=== PATIENT | female | born 1980 | race Caucasian/White ===

== ENCOUNTER → 2017-11-12 14:01 | Outpatient (CLI) | payer OTHER, SELFPAY | PROVIDERS: Family Provider Student in an Organized Health Care Education/Training Program; PCP Student in an Organized Health Care Education/Training Program; Visit Provider Nurse Practitioner Adult Health | DX: R00.2 Palpitations (principal) | CPT/HCPCS: 93225; 93226 ==

== ENCOUNTER 2018-04-07 00:10 | Emergency (ER) | payer OTHER, SELFPAY ==
[2018-04-07 00:11] VITALS: BP 151/99; PULSE 80; RESP 18; TEMP 37.4; O2SAT 98; BMI 32.8
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
--- NOTE | 2018-04-07 02:15 | ED.DEP ---
ED Disposition - Plan for ED Patient: Disposition: Home or Assisted Living Chief Complaint: General Illness Instructions: ED Fx Rib Prescriptions: Ondansetron [Zofran Odt] 4 mg PO Q8H PRN PRN #10 tab PRN Reason: Nausea Referrals: Jet Ashraf DO [Primary Care Provider] -
[2018-04-07 02:25] VITALS: PULSE 84; RESP 18; O2SAT 99
== END 2018-04-07 02:25 | disposition home or self-care (01) ==
PROVIDERS: Emergency Provider Emergency Medicine; Family Provider Student in an Organized Health Care Education/Training Program; PCP Student in an Organized Health Care Education/Training Program
DX: R06.9 Unspecified abnormalities of breathing (principal)
CPT/HCPCS: 71046; 99282

== ENCOUNTER 2019-01-24 08:22 | Emergency (ER) | payer OTHER, SELFPAY ==
[2019-01-24 08:24] VITALS: BP 140/96; PULSE 64; RESP 14; TEMP 37; O2SAT 100; BMI 29.9
--- NOTE | 2019-01-24 08:34 | EKG12_ITS ---
Test Reason : LEFT ARM PAIN Blood Pressure : / mmHG Vent. Rate : 064 BPM Atrial Rate : 064 BPM P-R Int : 152 ms QRS Dur : 074 ms QT Int : 410 ms P-R-T Axes : 047 021 035 degrees QTc Int : 422 ms Normal sinus rhythm Low voltage QRS Borderline ECG Confirmed by CARMELITA MINER, SHELLEY ([id number]), story editor MODESTA ARROYO ([id number]) on 01/26/2019 11:08:58 AM Referred By: JORDY Confirmed By:SHELLEY MAE MD
[2019-01-24 08:35] VITALS: BP 130/91; PULSE 66; RESP 14; O2SAT 99
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
[2019-01-24] MEDS: 0.9% Normal Saline 1,000 ML 150 ML IV (08:48)
[2019-01-24] MEDS: Ketorolac 30 MG/ML Syringe IV (08:48)
[2019-01-24 09:06] LABS: Absolute Neutrophil Count 3.3 X10^3/uL (2.0-7.7); Basophil# 0.03 X10^3/uL; Basophil% 0.5 % (0-1); Eosinophil# 0.16 X10^3/uL; Eosinophils% 2.7 % (0-5); Hematocrit 41.4 % (37-47); Hemoglobin 14.3 g/dl (12.0-15.0); Lymphocyte % 34.8 % (19-41); Mean Corp Hgb Conc 34.5 g/gl (32-36); Mean Corpuscular Hgb 30.2 pg (27.0-32.0); Mean Corpuscular Volume 87.3 fL (81-99); Mean Platelet Vol. 10.4 fl (6.2-12.0); Monocyte% 6.6 % (0-10); Neutrophil # 3.33 X10^3/uL (2.7-7.7); Neutrophil % 55.2 % (47-70); POSITIVE COUNT NO; POSITIVE DIFFERENTIAL NO; POSITIVE MORPHOLOGY NO; Platelet Count 235 K/mm3 (150-450); RBC Distribution Width CV 12.6 % (11.6-14.6); RBC Distribution Width SD 40.8 fl (35.1-43.9); Red Blood Count 4.74 M/mm3 (4.2-5.4)
--- NOTE | 2019-01-24 09:10 | RAD_ITS ---
STUDY: X-RAY CHEST REASON FOR EXAM: Female, 38 years old. Chest pain TECHNIQUE: PA and lateral views of the chest. COMPARISON: 04/07/2018 FINDINGS: The lungs are clear and expanded. There is no demonstrated pleural abnormality. Normal size heart. Normal mediastinum and ysabel. Normal visualized pulmonary arteries. Normal visualized aortic arch and descending thoracic aorta. Normal visualized thoracic spine. Normal visualized ribs, clavicles, and shoulders. There is no demonstrated abnormality of the visualized soft tissue structures of the upper abdomen. RAD/Chest PA and Lateral IMPRESSION: Normal x-ray examination of the chest. Electronically Signed: Calvin Lassiter DO at 9:27 EDT Tel , Service support ,
--- NOTE | 2019-01-24 09:19 | RAD_ITS ---
STUDY: X-RAY - LEFT SHOULDER REASON FOR EXAM: Female, 38 years old. Shoulder pain TECHNIQUE: 4 view(s) of the shoulder. COMPARISON: None. FINDINGS: Normal glenohumeral articulation. Normal acromioclavicular joint. Normal acromion. Normal humeral head and visualized proximal humerus. The soft tissue structures are unremarkable. Normal visualized pulmonary apex. RAD/Shoulder min 2 Views IMPRESSION: Normal x-ray examination of the shoulder. Electronically Signed: Calvin Lassiter DO at 9:27 EDT Tel , Service support ,
[2019-01-24 09:21] LABS: Anion Gap 5 (5-15); BUN 10 mg/dL (7-18); BUN/Creat Ratio 9.6 RATIO (10-20); Chloride 105 mmol/L (98-107); Creatinine, Serum 1.04 mg/dL (0.55-1.02); EST Glomerular Filtration Rate 62 mL/min (>60); Est Glom Filt Rate - Afr Amer 75 mL/min (>60); Glucose 86 mg/dL (74-106); Potassium 3.9 mmol/L (3.5-5.1); Sodium Level 138 mmol/L (136-145)
[2019-01-24 09:38] VITALS: BP 126/96; PULSE 64; RESP 16; O2SAT 99
== END 2019-01-24 09:44 | disposition home or self-care (01) ==
PROVIDERS: Emergency Provider Emergency Medicine; Family Provider Student in an Organized Health Care Education/Training Program; PCP Student in an Organized Health Care Education/Training Program
DX: M25.512 Pain in left shoulder (principal)
CPT/HCPCS: 71046; 73030; 80048; 84484; 85025; 93005; 96361; 96374; 99285; J7030

== ENCOUNTER → 2019-09-13 08:32 | Outpatient (CLI) | payer OTHER, SELFPAY ==
--- NOTE | 2019-09-13 08:33 | BI_ITS ---
MAMMOGRAPHY - BILATERAL SCREENING REASON FOR EXAM: Female, 39 years old. Routine annual screening examination. PERTINENT HISTORY: Aunts with breast cancer. TECHNIQUE: Digital bilateral breast nelli (3D mammographic acquisition) in the CC and MLO projections. 2-D mediolateral oblique (MLO) and craniocaudad (CC) views of both breasts were obtained. CAD: Full Field Digital Mammography with Computer Added Detection was performed. COMPARISON: Comparison is made with prior study dated January 06, 2017 and September 30, 2014. FINDINGS: Breast Composition: The breasts are heterogeneously dense, which may obscure small masses. There are no dominant masses or suspicious calcifications. No other significant abnormalities are identified. There has been no significant change since the prior study. BI/SCREEN MAMM (CAD) W/NELLI BILAT IMPRESSION: Stable bilateral screening mammogram. Yearly follow-up mammogram recommended. (A) ASSESSMENT CATEGORY: BIRADS Category 1: Negative. A letter regarding these results will be sent to the patient by the facility within 30 days. Approximately 10% of breast cancers are not detected by mammography. A normal mammogram should not delay biopsy of a clinically suspicious abnormality. [id number] Electronically Signed: Primo Esquivel, at 9:59 EST , Service support ,
== END ==
PROVIDERS: Family Provider Student in an Organized Health Care Education/Training Program; PCP Student in an Organized Health Care Education/Training Program; Referring Provider Obstetrics & Gynecology; Visit Provider Obstetrics & Gynecology
DX: Z12.31 Encounter for screening mammogram for malignant neoplasm of breast (principal)
CPT/HCPCS: 77063; 77067

== ENCOUNTER → 2020-04-10 13:22 | Outpatient (CLI) | payer OTHER, SELFPAY ==
--- NOTE | 2020-04-10 13:24 | CT_ITS ---
STUDY: CT BRAIN AND SINUSES WITHOUT CONTRAST REASON FOR EXAM: Female, 39 years old. SINUSITIS RADIATION DOSAGE (If Supplied By Facility): CTDIvol = ( 33.06 ) mGy, DLP = ( 829.72 ) mGycm TECHNIQUE: Transaxial CT imaging of the brain was performed without administration of contrast. Individualized dose optimization techniques were used for this CT. COMPARISON: No relevant priors. FINDINGS: CT BRAIN Normal soft tissue structures. Normal calvarium. Normal size ventricles and extra-axial spaces for the patient''s age. Normal white matter tracts of the cerebral hemispheres. Normal basal ganglia and thalami. Normal brainstem. Normal cerebellum. There is no intracranial hemorrhage. There are no findings of an acute ischemic infarction. CT SINUSES Post Surgical Changes: None. Frontal Sinus and Recess: Normal aeration without mucosal inflammatory disease. Ethmoidal Sinuses: Normal aeration without mucosal inflammatory disease. Maxillary Sinuses: Normal aeration without mucosal inflammatory disease. Ostiomeatal Complex: Clear. Sphenoid Sinus: Normal aeration without mucosal inflammatory disease. Sphenoethmoidal Recess: Clear. Nasal Turbinate (Right): Middle Turbinate (Right): Normal. Middle Turbinate (Left): Normal. Inferior Turbinate (Right): Normal. Inferior Turbinate (Left): Normal. Nasal Septum: Left sided nasal septal deviation with a nasal septal spur. Nasal Airway: Clear. Cribiform Plate / Anterior Cranial Fossa: Normal. Orbits: Normal. CT/Sinus/Facial Bone IMPRESSION: Nasal septal deviation toward the left side. Electronically Signed: Primo Esquivel, at 14:40 EDT , Service support ,
== END ==
PROVIDERS: PCP Student in an Organized Health Care Education/Training Program; Referring Provider Otolaryngology; Visit Provider Otolaryngology
DX: J32.9 Chronic sinusitis, unspecified (principal)
CPT/HCPCS: 70486

== ENCOUNTER 2020-05-04 11:56 | Outpatient (RCR) | payer OTHER, SELFPAY ==
--- NOTE | 2020-05-04 12:15 | SOAP_ITS ---
REASON FOR REFERRAL: The Patient is a 39 year old female referred for a clinical speech-language evaluation at [facility] on 05/04/2020 due to persistent difficulties with inhalation / shortness of breath likely secondary to paradoxical vocal fold dysfunction following extensive workup by the Patients licensed social worker and hydroelectric machinery mechanic helper. The Patient reports symptom onset in November / December of this year, with her initial symptoms (restricted breathing) attributed to strep pharyngitis (her son had recently had strep throat), and was treated with antibiotics; this was unsuccessful and she was then treated for a possible inner ear infection; this was additionally unsuccessful. She then underwent workup for asthma, allergies (which she reports was unsuccessful), and gastroesophageal reflux; she does report some benefit from use of proton pump inhibitors (vocal hoarseness has improved slightly). She additionally reports that she has an enlarged thyroid nodules, though this has improved with steroids (she reports about a 50% improvement). She reports that her symptoms include difficulties with inhalation vs. exhalation, chest heaviness / tightness, and globus sensation, with the patient describing her breathing as ?fluttered? and that its like having a ?hole in a straw?. She reports that her symptom onset is at random, with episodes lasting a few minutes, though reoccurring throughout the day, with these bouts lasting a few hours upwards to a few days. She has not noticed any precipitating signs, though has noticed a sensitivity to smell. She reported that she experienced some initial hoarse vocal quality and sore throat, though this appears to have improved. She reports that she is a ?type A? individual, though not overly anxious or stressed at baseline. 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 MEDICAL HISTORY: Pneumothorax (2018), status post appendectomy, fallopian cyst status post removal (1998), shoulder surgery (2019). MEDICATIONS: Zyrtec, Nasacort, omeprazole. RESULTS OF THE EVALUATION: The Patient presents with reported signs and symptoms similar to paradoxical vocal cord dysfunction (J38.3). FUNCTIONAL STATUS ASSESSMENT RESULTS: PATIENT HEALTH QUESTIONNAIRE (PHQ-9) PHQ OVERALL SCORE: 1 PHQ INTERPRETATION: minimal depression risk GENERALIZED ANXIETY DISORDER 7-ITEM (TY-7) SCALE TY-7 OVERALL SCORE: 4 TY-7 INTERPRETATION: no indicators of an anxiety disorder FUNCTIONAL AMBULATION CATEGORY (FAC): FAC SCORE: 5 (ambulator- independent) FAC DESCRIPTION: subject can ambulate independently on nonlevel and level surfaces, stairs, and inclines. CLINICAL ASSESSMENT OF VOCAL CORD FUNCTIONING (QUANTITATIVE): REFLUX SYMPTOM INDEX (RSI) RSI TOTAL SCORE: 12 RSI INDICATIONS: a score of >13 may indicate significant reflux VOCAL CORD DYSFUNCTION? QUESTIONNAIRE (VCD-Q): VCD-Q TOTAL SCORE: 37/60 DESCRIPTION OF RESULTS: a score > 12 indicates a possible vocal cord dysfunction CLINICAL ASSESSMENT OF VOCAL CORD FUNCTION (QUALITATIVE): TYPE OF STRIDOR / BREATHING DIFFICULTY INSPIRATORY: yes EXPIRATORY: no BIPHASIC (INSPIRATORY & EXPIRATORY): no PATTERN OF STRIDOR / BREATHING DIFFICULTY CONTINUOUS (ALL OF THE TIME) DAY & NIGHT: no CONTINUOUS DAYTIME ONLY NOT AT NIGHT: no INTERMITTENT ATTACKS LASTING MINUTES TO HOURS: yes INTERMITTENT ATTACKS LASTING HOURS TO DAYS: yes INTERMITTENT ATTACKS LASTING SEVERAL DAYS: yes TRIGGERS (TIMING / ASSOCIATED ACTIVITIES) AFTER MEALS (EATING / DRINKING): no AWAKENS FROM SLEEP: no ASSOCIATED WITH EXERCISE: no ASSOCIATED WITH STRESS: no (unsure) ASSOCIATED WITH CERTAIN ODORS: yes ASSOCIATED SYMPTOMS HOARSENESS: yes (improved with PPI) CHEST TIGHTNESS: yes COUGH: no DYSPHAGIA: no GLOBUS SENSATION: yes HEARTBURN: yes REGURGITATION: no THROAT TIGHTNESS: yes SPECIFIC RELEVANT PAST MEDICAL HISTORY ALLERGIES / ASTHMA: no BRAIN TUMOR: no HALDOL OR OTHER PHENOTHIAZINE: no HEAD INJURY: no LARYNGEAL OR NON-LARYNGEAL DYSTONIA: no LPR / GERD: yes PSYCHIATRIC DISORDER: no STROKE: no VOCAL FOLD PARALYSIS: no RECOMMENDATIONS FOR INTERVENTION: Recommend continued skilled speech-language intervention 1x per week for upwards of 10 weeks with a licensed speech-language pathologist targeting training and implementation of recommended compensatory respiratory strategies and laryngeal control exercises to reduce / eliminate the effects of paradoxical vocal fold dysfunction. FUNCTIONAL OUTCOMES: OUTCOME 1: the Patient with independently demonstrate and utilize recommended compensatory breathing techniques during both structured therapeutic activities and during acute breathing episodes to facilitate improved airway functioning and decreased anxiety at the independent level, across 2 out of 3 sessions. OUTCOME 2: goal adjustment as needed Deyvi Holcomb M.A., [employer] INSURANCE SALESPERSON, CBIS MBSImP Certified, LSVT Certified [facility] Speech-Language Pathology Department [email or web address]
--- NOTE | 2020-09-08 12:53 | HP.SP.DC ---
ST Discharge Summary - Discharged: Discharge: The patient is a 40 year old female who was referred for a clinical speech-language evaluation at [facility] on 05/04/2020 due to persistent difficulties with inhalation / shortness of breath likely secondary to paradoxical vocal fold dysfunction following extensive workup by the patients blocking machine operator second and leather flesher. The patient presenting with reported signs and symptoms similar to paradoxical vocal cord dysfunction (J38.3), though further testing was expected to be completed prior to initiation of services. Recommendations were made for continued skilled speech-language intervention 1x per week for upwards of 10 weeks with a licensed speech-language pathologist targeting training and implementation of recommended compensatory respiratory strategies and laryngeal control exercises to reduce / eliminate the effects of paradoxical vocal fold dysfunction pending results of the anticipated pulmonary based tests. Given the rather significant laps between intervention sessions, it is appropriate to discharge from the skilled speech-language pathology caseload at this time, though I will gladly re-initiate intervention as needed moving forward.
== END 2020-05-04 19:00 | disposition home or self-care (01) ==
LOC: SP 11:56
PROVIDERS: PCP Student in an Organized Health Care Education/Training Program; Referring Provider Internal Medicine Critical Care Medicine; Visit Provider Internal Medicine Critical Care Medicine
DX: J38.3 Other diseases of vocal cords (principal)
CPT/HCPCS: 92524

== ENCOUNTER → 2020-05-08 13:31 | Outpatient (CLI) | payer OTHER, SELFPAY ==
--- NOTE | 2020-05-08 13:34 | US_ITS ---
PROCEDURE: ULTRASOUND GUIDED LEFT THYROID FNA/BIOPSY. DATE: 05/08/2020. INDICATION: Female, 39 years old. Left thyroid nodule. PHYSICIAN: Primo Esquivel M.D. MEDICATIONS: 2% lidocaine administered subcutaneously for local anesthesia. ACCESS SITE: Left - anterior approach. NEEDLE: 25-gauge FNA needle. SPECIMEN: Multiple FNA specimen collected and given to pathology. EBL: None. COMPLICATIONS: None immediate. PROCEDURE: The risks, benefits, and alternatives to the procedure were explained to the patient. The specific risk of hemorrhage requiring further treatment or intervention was detailed and accepted. Written informed consent was obtained. The patient was brought into the ultrasound room and placed in the supine position on the stretcher. An appropriate entry site was identified. The overlying skin was prepped and draped in the usual sterile fashion. 2% lidocaine was administered subcutaneously for local anesthesia. Under ultrasound guidance, a 25-gauge FNA needle was advanced into the lesion. Aspiration was performed and the needle was withdrawn. A total of 4 passes were performed with specimen collected and given to the pathologist who was present during the procedure. Hemostasis was achieved with manual compression. Repeat ultrasound images of the biopsy area was performed which demonstrated no gross bleeding or hematoma. An antibiotic ointment dressing was placed and the patient was given an icepack. The patient tolerated the procedure well without immediate complications. The patient was discharged in stable condition. US/FNA 1st Biopsy w/ US IMPRESSION: Successful ultrasound-guided left thyroid nodule FNA/biopsy, as described above. Electronically Signed: Primo Esquivel, at 15:13 EDT , Service support ,
== END ==
PROVIDERS: PCP Student in an Organized Health Care Education/Training Program
DX: E04.1 Nontoxic single thyroid nodule (principal)
CPT/HCPCS: 10005; 88161; 88172; 88305; 88313

== ENCOUNTER → 2020-06-08 13:27 | Outpatient (CLI) | payer OTHER, SELFPAY ==
--- NOTE | 2020-06-08 13:31 | US_ITS ---
PROCEDURE: ULTRASOUND GUIDED LEFT THYROID FNA/BIOPSY. DATE: 06/08/2020. INDICATION: Female, 39 years old. Left thyroid nodule. PHYSICIAN: Primo Esquivel M.D. MEDICATIONS: 2% lidocaine administered subcutaneously for local anesthesia. ACCESS SITE: Left - anterior approach. NEEDLE: 25-gauge FNA needle. SPECIMEN: Multiple FNA specimen collected and given to pathology. EBL: None. COMPLICATIONS: None immediate. PROCEDURE: The risks, benefits, and alternatives to the procedure were explained to the patient. The specific risk of hemorrhage requiring further treatment or intervention was detailed and accepted. Written informed consent was obtained. The patient was brought into the ultrasound room and placed in the supine position on the stretcher. An appropriate entry site was identified. The overlying skin was prepped and draped in the usual sterile fashion. 2% lidocaine was administered subcutaneously for local anesthesia. Under ultrasound guidance, a 25-gauge FNA needle was advanced into the lesion. Aspiration was performed and the needle was withdrawn. A total of 4 passes were performed with specimen collected and given to the pathologist who was present during the procedure. Hemostasis was achieved with manual compression. Repeat ultrasound images of the biopsy area was performed which demonstrated no gross bleeding or hematoma. An antibiotic ointment dressing was placed and the patient was given an icepack. The patient tolerated the procedure well without immediate complications. The patient was discharged in stable condition. US/FNA 1st Biopsy w/ US IMPRESSION: Successful ultrasound-guided left thyroid nodule FNA/biopsy, as described above. Electronically Signed: Primo Esquivel, at 14:33 EDT , Service support ,
== END ==
PROVIDERS: PCP Student in an Organized Health Care Education/Training Program
DX: E04.1 Nontoxic single thyroid nodule (principal)
CPT/HCPCS: 10005; 88161; 88172; 88305; 88313

== ENCOUNTER → 2020-09-27 08:16 | Outpatient (CLI) | payer OTHER, SELFPAY ==
--- NOTE | 2020-09-27 08:18 | BI_ITS ---
MAMMOGRAPHY - BILATERAL SCREENING REASON FOR EXAM: Female, 40 years old. Routine annual screening examination. PERTINENT HISTORY: Grandmother with breast cancer. Aunts with breast cancer. TECHNIQUE: Digital bilateral breast nelli (3D mammographic acquisition) in the CC and MLO projections. 2-D mediolateral oblique (MLO) and craniocaudad (CC) views of both breasts were obtained. CAD: Full Field Digital Mammography with Computer Added Detection was performed. COMPARISON: Comparison is made with prior study dated 09/13/2019 and 01/06/2017. FINDINGS: Breast Composition: The breasts are heterogeneously dense, which may obscure small masses. There are no dominant masses or suspicious calcifications. No other significant abnormalities are identified. There has been no significant change since the prior study. BI/SCREEN MAMM (CAD) W/NELLI BILAT IMPRESSION: Stable bilateral screening mammogram. Yearly follow-up mammogram recommended. (A) ASSESSMENT CATEGORY: BIRADS Category 1: Negative. A letter regarding these results will be sent to the patient by the facility within 30 days. Approximately 10% of breast cancers are not detected by mammography. A normal mammogram should not delay biopsy of a clinically suspicious abnormality. [id number] Electronically Signed: Primo Esquivel, at 9:49 EST , Service support ,
== END ==
PROVIDERS: PCP Student in an Organized Health Care Education/Training Program; Referring Provider Obstetrics & Gynecology; Visit Provider Obstetrics & Gynecology
DX: Z12.31 Encounter for screening mammogram for malignant neoplasm of breast (principal); Z80.3 Family history of malignant neoplasm of breast
CPT/HCPCS: 77063; 77067

== ENCOUNTER → 2020-10-24 07:01 | Outpatient (CLI) | payer OTHER, SELFPAY ==
[2020-10-24] MEDS: Methacholine Chloride 18 ml neb kit IH (07:15)
--- NOTE | 2020-10-25 10:14 | BRONCHALL ---
Bronchoprovocation Challenge - Bronchoprovocation Challenge Bronchoprovocation Challenge: INTRODUCTION: The patient is a 40-year-old female that presents for a bronchoprovocation challenge secondary to a diagnosis of shortness of breath. Respiratory therapy reports good patient effort and reproducible results. INTERPRETATION: Initial spirometry did not show any large airways obstructive ventilatory defect and preserved airflows throughout. The patient was then given progressively increasing doses of methacholine in a standardized fashion. At no point during testing did the patient's FEV1 drop to the threshold criteria that would be considered indicative of a positive test. IMPRESSION: Negative methacholine challenge.
== END ==
LOC: PSN 07:02
PROVIDERS: PCP Student in an Organized Health Care Education/Training Program; Visit Provider Student in an Organized Health Care Education/Training Program
DX: R06.02 Shortness of breath (principal)
CPT/HCPCS: 94070; 95070

== ENCOUNTER 2021-10-01 12:43 | Outpatient (CLI) | payer BC, SELFPAY ==
--- NOTE | 2021-10-01 12:46 | BI_ITS ---
MAMMOGRAPHY - BILATERAL SCREENING REASON FOR EXAM: Female, 41 years old. Routine annual screening examination. PERTINENT HISTORY: Grandmother with breast cancer. Aunts with breast cancer. TECHNIQUE: Digital bilateral breast nelli (3D mammographic acquisition) in the CC and MLO projections. 2-D mediolateral oblique (MLO) and craniocaudad (CC) views of both breasts were obtained. CAD: Full Field Digital Mammography with Computer Added Detection was performed. COMPARISON: Comparison is made with prior study dated 09/27/2020 and 09/13/2019. FINDINGS: Breast Composition: The breasts are extremely dense, which lowers the sensitivity of mammography. There are no dominant masses or suspicious calcifications. No other significant abnormalities are identified. There has been no significant change since the prior study. BI/SCRN MAMM (CAD)W/NELLI BILAT IMPRESSION: Stable bilateral screening mammogram. Yearly follow-up mammogram recommended. (A) ASSESSMENT CATEGORY: BIRADS Category 1: Negative. A letter regarding these results will be sent to the patient by the facility within 30 days. Approximately 10% of breast cancers are not detected by mammography. A normal mammogram should not delay biopsy of a clinically suspicious abnormality. [id number] Electronically Signed: Primo Esquivel MD at 13:20 EST , Service support ,
== END 2021-10-01 23:59 | disposition home or self-care (01) ==
PROVIDERS: PCP Student in an Organized Health Care Education/Training Program; Visit Provider Obstetrics & Gynecology
DX: Z12.31 Encounter for screening mammogram for malignant neoplasm of breast (principal)
CPT/HCPCS: 77063; 77067